=== PATIENT | male | born 1955 | race Two or more races ===

== ENCOUNTER 2017-03-31 | Inpatient (IN) | payer OTHER ==
[~2017-03-31] VITALS: Ht 170.2 cm; Wt 68.5 kg
--- NOTE | 2017-03-31 00:11 | NUR ---
PT BRIB LAFD FROM HOME C/O CHEST PAIN PER PT "IT STARTED YESTERDAY, BUT GOT WORSE TODAY WITHIN THE LAST HOUR, THE PAIN IS INTERMITANT" PT A/O X 4 BREATHING EVEN/UNLABORED, SKIN WARM/DRY/INTACT, NO N/V, PT RECEIVED 126 ASPRIN IN FIELD AND 1 SPRAY SUBLINGUAL NITRO. NSR ON TECHNOLOGY CONSULTANT
[2017-03-31] MEDS ORDERED: ASPIRIN 81 MG TAB.CHEW ONE (00:28)
[2017-03-31] MEDS ORDERED: ASPIRIN 81 MG TAB.CHEW PO ONE (00:30)
[2017-03-31 00:32] LABS: BASOPHILS # (AUTO) 0.1 /CMM (0.0-0.2); BASOPHILS % (AUTO) 0.6 % (0.0-2.0); EOSINOPHILS # (AUTO) 0.1 /CMM (0.0-0.7); EOSINOPHILS % (AUTO) 1.4 % (0.0-6.0); HEMATOCRIT 45 % (39-51); HEMOGLOBIN 15.1 g/dL (13.5-17.5); LYMPHOCYTES # (AUTO) 2.4 /CMM (0.8-4.8); LYMPHOCYTES % (AUTO) 23.8 % (20.0-44.0); MEAN CORPUSCULAR HEMOGLOBIN 31 PG (26.0-33.0); MEAN CORPUSCULAR HGB CONC 34 g/dl (31.0-36.0); MEAN CORPUSCULAR VOLUME 92 fL (80-96); MONOCYTES # (AUTO) 0.5 /CMM (0.1-1.30); MONOCYTES % (AUTO) 4.4 % (2.0-12.0); NEUTROPHILS # (AUTO) 7.2 /CMM (1.8-8.9); NEUTROPHILS % (AUTO) 69.8 % (43.0-81.0); PLATELET COUNT (AUTO) 205 /CMM (150-450); RDW COEFFICIENT OF VARIATION 14.5 (11.5-15.0); RED BLOOD CELL COUNT(AUTO) 4.92 MIL/uL (4.5-6.0); WHITE BLOOD COUNT (AUTO) 10.3 K/uL (4.3-11.0)
[2017-03-31 00:43] LABS: CALCIUM, SERUM 8.8 mg/dL (8.5-10.1); CARBON DIOXIDE 26 mmol/L (21-32); CHLORIDE 106 mmol/L (98-107); CREATININE 0.9 mg/dL (0.6-1.3); GLUCOSE 95 mg/dL (74-106); POTASSIUM 3.7 mmol/L (3.5-5.1); SODIUM SERUM 141 mmol/L (136-145); UREA NITROGEN, BLOOD 23 mg/dL (7-18)
[2017-03-31 00:44] LABS: INR 0.98 (0.87-1.13); PROTHROMBIN TIME 10.2 SECS (9.5-12.7)
[2017-03-31 00:48] LABS: TROPONIN I < 0.017 ng/mL (0.00-0.056)
--- NOTE | 2017-03-31 00:57 | NUR ---
PT SITTING IN BED, BREATHING EVEN/UNLABORED, NO C/O PAIN AT THIS TIME, IS BEDSIDE, UPDATED PT ON PLAN OF CARE
[2017-03-31] MEDS ORDERED: IV NS 0.9% 500 ML BAG IV ONE (01:00)
--- NOTE | 2017-03-31 01:24 | NUR ---
REPORT GIVEN TO VIKY BECKFORD, ALL QUESTIONS ANSWERED
[2017-03-31] MEDS ORDERED: ZOLPIDEM TARTRATE 5 MG TABLET PO PRN (02:00)
[2017-03-31] MEDS ORDERED: MAG HYDROX/AL HYDROX/SIMETH 30 ML UDC PO PRN (02:00)
[2017-03-31] MEDS ORDERED: HYDROCODONE/APAP 5/325MG 1 EACH TABLET PO PRN (02:00)
[2017-03-31] MEDS ORDERED: ACETAMINOPHEN 325 MG TABLET PO PRN (02:00)
[2017-03-31] MEDS ORDERED: MAGNESIUM HYDROXIDE 30 ML UDC PO PRN (02:00)
[2017-03-31] MEDS ORDERED: Z GUARD REMEDY 2 OZ OINT TP PRN (02:00)
[2017-03-31] MEDS ORDERED: ONDANSETRON HCL/PF 4 MG/2 ML VIAL IVP PRN (02:00)
--- NOTE | 2017-03-31 02:09 | NUR ---
PT SLEEPING IN BED, AROUSED TO VOICE, BREATHING EVEN/UNLABORED, NO C/O PAIN, SKIN WARM/DRY INTACT, WAITING ON ADMISSION PAPERWORK, PT UPDATED ON PLAN OF CARE
[2017-03-31 02:40] VITALS: BP 98/63
[2017-03-31 02:45] VITALS: BP 98/63
--- NOTE | 2017-03-31 03:02 | NUR ---
TELE/RN OPENING NOTES PT ARRIVED TO UNIT VIA GURNEY FROM ER. ON ROOM AIR, BREATHING EVEN AND UNLABORED. NO S/S OF DISTRESS NOTED. DENIES SOB OR CHEST PAIN AT THIS TIME. PLACED ON TELE MONITOR, SHOWING SINUS RHYTHM WITH HEART RATE 63. PT REFUSED FULL BODY CHECK. WANTS TO SLEEP. PT AMBULATORY. NO APPARENT DISTRESS NOTED. ORIENTED PT TO ROOM AND CALL LIGHT. BED IN LOW/LOCKED POSITION WITH SIDE RAILS UPX2. WILL CONTINUE TO MONITOR
[2017-03-31 04:00] VITALS: BP_SYST 110; BP_SYST 94; BP_DIAS 52; BP_DIAS 60
[2017-03-31 04:30] VITALS: BP 94/60
[2017-03-31] MEDS ORDERED: CLOP75TA2 PO (04:40)
[2017-03-31] MEDS ORDERED: ATEN100T PO (04:40)
--- NOTE | 2017-03-31 06:47 | NUR ---
TELE/RN CLOSING NOTES PT ASLEEP, EASILY AROUABLE TO NAME. ON ROOM AIR, BREATHING EVEN AND UNLABORED. ON TELE MONITOR SHOWING SINUS RHYTHM WITH HEART RATE 90'S. NO COMPLAINTS OF SOB OR CHEST PAIN DURING SHIFT. IV TO LEFT HAND PATENT AND INTACT. MADE PT COMFORTABLE DURING SHIFT. ALL NEEDS MET AND ATTENDED. BED IN LOW/LOCKED POSITION WITH CALL LIGHT IN REACH. SIDE RAILS UPX2. WILL ENDORSE TO AM SHIFT [place].
[2017-03-31 07:37] LABS: THYROID STIMULATING HORMONE 0.97 uIU/mL (0.358-3.74)
--- NOTE | 2017-03-31 07:50 | NUR ---
CAUSTIC PUMP OPERATOR OPENING NOTE PATIENT IS ALERT AND ORIENTED x3. NO PAIN AT THIS TIME. NO SOB OR DISTRESS NOTED. CALL LIGHT WITHIN REACH. SAFETY MEASURES IMPLEMENTED. ABLE TO COMMUNICATE NEEDS. TELE MONITOR ON, SR-[id number]. ROOM AIR, O2 SAT AT 97%. BRP. LEFT HAND IV INTACT AND PATENT NO REDNESS OR SWELLING NOTED. FLUSHES WELL. AM LAB RESULTS PENDING. MED RECON TO BE DONE. AWAITING FOR PATIENT RECORDS FROM [facility] PER DR. SHIN. WILL CONTINUE TO MONITOR THROUGHOUT SHIFT
[2017-03-31 08:00] VITALS: BP 98/57
[2017-03-31] MEDS: POTASSIUM CHLORIDE 20 MEQ TAB.PRT.SR PO SCH ×2 (08:15→09:16)
[2017-03-31] MEDS: IV NS 0.9% 1,000 ML IV SCH ×2 (08:15→11:33)
[2017-03-31] MEDS: CLOPIDOGREL BISULFATE 75 MG TABLET PO SCH (08:15)
[2017-03-31] MEDS: ATORVASTATIN 40 MG TABLET PO SCH (08:15)
[2017-03-31] MEDS ORDERED: POTASSIUM CHLORIDE 20 MEQ TAB.PRT.SR PO SCH (10:00)
[2017-03-31] MEDS: ATENOLOL 50 MG TABLET PO SCH (10:48)
--- NOTE | 2017-03-31 11:35 | NUR ---
RN NOTE SECOND DOSE OF POTASSIUM ALREADY GIVEN. MADE PHARMACY AWARE.
--- NOTE | 2017-03-31 18:57 | NUR ---
COUNTER PERSON CLOSING NOTE PATIENT IS ALERT AND ORIENTED x4. NO PAIN AT THIS TIME. NO SOB OR DISTRESS NOTED. CALL LIGHT WITHIN REACH, SAFETY MEASURES IMPLEMENTED. ABLE TO COMMUNICATE NEEDS. ALL DUE MEDICATIONS GIVEN ORDERED. NPO AFTER MIDNIGHT FOR LEXISCAN IN THE MORNING 04/01/17. DR. SHIN AWARE THAT CONSENT HAS BEEN OBTAINED. NOTIFIED AMARIS FROM [facility]UCLEAR [facility]INE THAT PATIENT GAVE CONSENT FOR LEXISCAN. TELE MONITOR- SR AT 64. LABS IN AM. LEFT HAND IV INTACT AND PATENT NO REDNESS OR SWELLING NOTED. WILL ENDORSE TO TROUBLE OPERATOR NURSE
--- NOTE | 2017-03-31 19:00 | NUR ---
TREE SHEAR OPERATOR OPENING NOTES RECEIVE PT IN BED, PT A/O X4, PT NO ACUTE DISTRESS NOTED. TOLERATING ROOM AIR 02 SAT 98 %BREATHING EVEN AND UNLABORED, HEAD OF BED ELEVATED FOR BETTER LUNG EXPANSION AND GOOD CIRCULATION. SAFETY MEASURES IN PLACE, BED LOCKED AND IN LOWEST POSITION, CALL LIGHT IN REACH. WILL CONTINUE TO MONITOR.
[2017-03-31 20:00] VITALS: BP 92/57
[2017-04-01] VITALS: BP 93/50
[2017-04-01 04:00] VITALS: BP 92/48
--- NOTE | 2017-04-01 06:26 | NUR ---
HVAC LEAD CLOSING NOTES ASLEEP AND EASILY AWAKEN, MAINTAINS NPO AT MIDNIGHT, HEAD OF BED ELEVATED FOR BETTER LUNG EXPANSION AND GOOD CIRCULATION, IN STABLE CONDITION, NOT IN RESPIRATORY DISTRESS, NO COMPLAIN OF CHEST PAIN THROUGHOUT THE SHIFT. GOOD SKIN CARE PROVIDED, TOLERATING ROOM AIR 02 SAT AT 100% RESPIRATIONS EVEN AND UNLABORED, AFEBRILE, NEEDS ATTENDED AND ANTICIPATED, KEPT CLEAN AND DRY AND COMFORTABLE, NURSING CARE RENDERED, ALL DUE MEDS WAS GIVEN FREQUENT VISUAL CHECK DONE FOR SAFETY SAFE HAZARD FREE ENVIRONMENT PROVIDED. CALL LIGHT WITHIN EASY TO REACH, ON LOW BED AT ALL TIMES TO ENSURE SAFETY, WILL ENDORSE TO THE NEXT SHIFT CONTINUE PLAN OF CARE
[2017-04-01 06:27] LABS: BASOPHILS # (AUTO) 0.1 /CMM (0.0-0.2); BASOPHILS % (AUTO) 0.7 % (0.0-2.0); EOSINOPHILS # (AUTO) 0.1 /CMM (0.0-0.7); EOSINOPHILS % (AUTO) 1.7 % (0.0-6.0); HEMATOCRIT 47 % (39-51); HEMOGLOBIN 15.9 g/dL (13.5-17.5); LYMPHOCYTES # (AUTO) 2.6 /CMM (0.8-4.8); LYMPHOCYTES % (AUTO) 33.2 % (20.0-44.0); MEAN CORPUSCULAR HEMOGLOBIN 31 PG (26.0-33.0); MEAN CORPUSCULAR HGB CONC 34 g/dl (31.0-36.0); MEAN CORPUSCULAR VOLUME 91 fL (80-96); MONOCYTES # (AUTO) 0.5 /CMM (0.1-1.30); MONOCYTES % (AUTO) 5.7 % (2.0-12.0); NEUTROPHILS # (AUTO) 4.6 /CMM (1.8-8.9); NEUTROPHILS % (AUTO) 58.7 % (43.0-81.0); PLATELET COUNT (AUTO) 195 /CMM (150-450); RDW COEFFICIENT OF VARIATION 14.8 (11.5-15.0); RED BLOOD CELL COUNT(AUTO) 5.19 MIL/uL (4.5-6.0); WHITE BLOOD COUNT (AUTO) 7.9 K/uL (4.3-11.0)
[2017-04-01 06:43] LABS: TROPONIN I < 0.017 ng/mL (0.00-0.056)
[2017-04-01 06:45] LABS: ALANINE AMINOTRANSFERASE 23 U/L (12-78); ALBUMIN 3.2 g/dL (3.4-5.0); ALKALINE PHOSPHATASE 49 U/L (46-116); ASPARTATE AMINOTRANSFERASE 12 U/L (15-37); BILIRUBIN,TOTAL 0.4 mg/dL (0.2-1.0); CALCIUM, SERUM 9.1 mg/dL (8.5-10.1); CARBON DIOXIDE 29 mmol/L (21-32); CHLORIDE 106 mmol/L (98-107); CREATININE 0.6 mg/dL (0.6-1.3); GLUCOSE 103 mg/dL (74-106); MAGNESIUM 2.1 mg/dL (1.8-2.4); PHOSPHORUS 2.7 mg/dL (2.5-4.9); POTASSIUM 3.9 mmol/L (3.5-5.1); SODIUM SERUM 141 mmol/L (136-145); TOTAL PROTEIN, SERUM 6.7 g/dL (6.4-8.2); UREA NITROGEN, BLOOD 10 mg/dL (7-18)
--- NOTE | 2017-04-01 07:20 | NUR ---
LATIN AMERICAN STUDIES DIRECTOR OPENING NOTES RECEIVED PATIENT IN STABLE CONDITION. PATIENT IS RESTING IN BED. CALL LIGHT IS WITHIN REACH. SIDE RAILS ARE UP X2. BED IS LOCKED AND LOWERED. WILL CONTINUE TO MONITOR.
--- NOTE | 2017-04-01 07:50 | NUR ---
MS ANALY CRAWFORD PATIENT TAKEN TO [facility].
[2017-04-01 08:00] VITALS: BP 99/66
[2017-04-01] MEDS ORDERED: REGADENOSON 0.4 MG/5 ML DISP.SYRIN IVP ONE (08:00)
[2017-04-01 08:55] LABS: CHOLESTEROL 190 mg/dL (<200); HDL CHOLESTEROL 64 mg/dL (40-60); TRIGLYCERIDES 59 mg/dL (30-150)
[2017-04-01 08:56] LABS: LDL 112 mg/dL (0-99)
--- NOTE | 2017-04-01 09:50 | NUR ---
RETURNED FROM NUCLEAR MED S/P STRESS TEST WITH STABLE V/S.
[2017-04-01] MEDS: ATENOLOL 50 MG TABLET PO SCH (10:40)
[2017-04-01] MEDS: ATORVASTATIN 40 MG TABLET PO SCH (10:41)
[2017-04-01] MEDS: CLOPIDOGREL BISULFATE 75 MG TABLET PO SCH (10:41)
[2017-04-01 12:00] VITALS: BP 151/83
--- NOTE | 2017-04-01 13:00 | NUR ---
PATIENT WAS DISCHARGED HOME IN STABLE CONDITION.
== END 2017-04-01 12:57 | disposition home or self-care (01) | DRG 203 ==
LOC: ER 00:04 → TELE 02:18 → MED 04-01 11:18
PROVIDERS: ADMIT Family Medicine; ATTEND Family Medicine
DX: M94.0 Chondrocostal junction syndrome [Tietze] (principal); I95.9 Hypotension, unspecified; J98.11 Atelectasis; I25.10 Atherosclerotic heart disease of native coronary artery without angina pectoris; Z95.5 Presence of coronary angioplasty implant and graft; Z82.49 Family history of ischemic heart disease and other diseases of the circulatory system; Z79.02 Long term (current) use of antithrombotics/antiplatelets; Z72.0 Tobacco use
CPT/HCPCS: 36415; 71010-TC; 80048-TC; 80053-TC; 80061-TC; 83735-TC; 84100-TC; 84439-TC; 84443-TC; 84484-TC; 85025-TC; 85730-TC; 87081-TC; 93307-TC; A9502; J2785; J7030; J7040